=== PATIENT | female | born 1940 | race Caucasian/White ===

== ENCOUNTER 2025-04-23 17:55 | Outpatient (CLI) | payer MEDICARE, BC, SELFPAY | END 2025-04-23 17:56 | disposition home or self-care (01) | PROVIDERS: Visit Provider Student in an Organized Health Care Education/Training Program | DX: S79.911A Unspecified injury of right hip, initial encounter (principal); W01.0XXA Fall on same level from slipping, tripping and stumbling without subsequent striking against object, initial encounter; Y92.007 Garden or yard of unspecified non-institutional (private) residence as the place of occurrence of the external cause | CPT/HCPCS: A0425; A0427 ==